=== PATIENT | male | born 1950 | race Caucasian/White ===

== ENCOUNTER 2023-02-21 11:48 | Emergency (ER) | payer OTHER ==
[~2023-02-21] VITALS: Ht 177.8 cm; Wt 113.4 kg
[~2023-02-21 11:48] MED LIST: ACET500; ACYC800 PO; ALBU90OI6 INH; ASCO250CH; ASPI81CH; BUPR150ER PO; DOCSEN PO; FINA5 PO; FISH1000; HYDR1TAB94 PO; IBUP600 PO; OXYACE5T PO; PANT40; PIOG15 PO; Pyridium100 MG PO; SIMV10 PO; SULTRIDS PO; TYLENOL PM EX-1 EAC1
[2023-02-21 11:53] VITALS: BP 149/76
[2023-02-21] MEDS ORDERED: DOC250 PO (13:48)
[2023-02-21] MEDS ORDERED: HYDR1TAB94 PO (13:48)
[2023-02-21] MEDS ORDERED: LIDO700A20 TOP (13:48)
== END 2023-02-21 14:22 | disposition home or self-care (01) ==
LOC: ER 11:48
DX: S30.0XXA Contusion of lower back and pelvis, initial encounter (principal); F17.200 Nicotine dependence, unspecified, uncomplicated; Z79.84 Long term (current) use of oral hypoglycemic drugs; Z79.82 Long term (current) use of aspirin; Z79.899 Other long term (current) drug therapy; Z88.1 Allergy status to other antibiotic agents; Z88.5 Allergy status to narcotic agent; Z91.048 Other nonmedicinal substance allergy status; W01.0XXA Fall on same level from slipping, tripping and stumbling without subsequent striking against object, initial encounter
CPT/HCPCS: 72100; 99283-25

== ENCOUNTER 2023-04-05 15:34 | Emergency (ER) | payer OTHER ==
[~2023-04-05] VITALS: Ht 177.8 cm; Wt 122.5 kg
[~2023-04-05 15:34] MED LIST changes: +DOC250 PO; +LIDO700A20 TOP
[2023-04-05 16:11] VITALS: BP 138/68
[2023-04-05] MEDS ORDERED: Cyclobenzaprine HCl 10 MG Tab PO ONE (19:35)
[2023-04-05] MEDS ORDERED: Lidocaine 4% 1 Patch TOP ONE (19:35)
[2023-04-05] MEDS ORDERED: OxyCODONE 5 mg/Acetamin 325 mg TABLET PO ONE (19:35)
[2023-04-05] MEDS ORDERED: Acetaminophen 325 MG TABLET PO ONE (19:35)
[2023-04-05 20:04] LABS: BASOPHILS ABSOLUTE AUTO 0.05 K/mm3 (0.00-0.23); BASOPHILS PERCENT AUTO 1 % (0-2); EOSINOPHILS ABSOLUTE AUTO 0.33 K/mm3 (0.00-0.68); EOSINOPHILS PERCENT AUTO 5 % (0-6); Hematocrit 48.2 % (37.0-53.0); Hemoglobin 15.1 g/dL (13.5-17.5); IMMATURE GRAN ABSOLUTE AUTO 0.02 K/mm3 (0.00-0.10); IMMATURE GRAN PERCENT AUTO 0 % (0-1); LYMPHOCYTES ABSOLUTE AUTO 1.11 K/mm3 (0.84-5.20); LYMPHOCYTES PERCENT AUTO 18 % (21-46); MONOCYTES ABSOLUTE AUTO 0.71 K/mm3 (0.16-1.47); MONOCYTES PERCENT AUTO 12 % (4-13); Mean Corpuscular HGB 30.2 pg (26.0-34.0); Mean Corpuscular HGB Conc 31.3 g/dL (31.5-36.5); Mean Corpuscular Volume 96 fL (80-100); Mean Platelet Volume 10.2 fL (9.1-12.4); NEUTROPHILS ABSOLUTE AUTO 3.92 K/mm3 (1.96-9.15); NEUTROPHILS PERCENT AUTO 64 % (41-73); Platelet Count 209 K/mm3 (150-400); RDW Coefficient Variation 14.6 % (11.7-14.2); RDW Standard Deviation 51.8 fL (35.1-46.3); White Blood Cell Count 6.14 K/mm3 (4.00-11.30)
[2023-04-05 20:29] LABS: Albumin, Blood 3.9 g/dL (3.4-5.0); Bilirubin, Total 0.4 mg/dL (0.1-1.0); Bun/Creatinine Ratio 27.1 (12.0-20.0); Calcium, Blood 9.2 mg/dL (8.5-10.1); Creatinine, Blood 1.07 mg/dL (0.60-1.20); Globulin, Blood 3.9 g/dL (2.2-4.0); Potassium, Blood 4.8 mmol/L (3.5-5.5); Total Protein, Blood 7.8 g/dL (6.4-8.2)
[2023-04-05] MEDS ORDERED: Percocet 5-3251 EACH PO (20:57)
[2023-04-05] MEDS ORDERED: LIDO700A20 TOP (20:57)
[2023-04-05] MEDS ORDERED: CYCL10 PO (20:57)
== END 2023-04-05 20:51 | disposition home or self-care (01) ==
LOC: ER 15:34
PROVIDERS: Student in an Organized Health Care Education/Training Program
DX: M54.42 Lumbago with sciatica, left side (principal); R60.0 Localized edema; Z90.5 Acquired absence of kidney; Z88.1 Allergy status to other antibiotic agents; Z88.5 Allergy status to narcotic agent; Z79.82 Long term (current) use of aspirin; Z79.84 Long term (current) use of oral hypoglycemic drugs; Z79.899 Other long term (current) drug therapy
CPT/HCPCS: 80053; 85025; 99283; A9270

== ENCOUNTER → 2024-06-23 | Outpatient (CLI) | payer OTHER ==
[~2024-06-23] MED LIST changes: +CYCL10 PO; +Percocet 5-3251 EACH PO
[2024-06-24 12:35] LABS: Stool Occult Bld Immuno 1 Negative (NEGATIVE)
== END | disposition home or self-care (01) ==
LOC: LAB SHORT 11:36 → LAB 11:36
PROVIDERS: Family Medicine
DX: Z12.11 Encounter for screening for malignant neoplasm of colon (principal)
CPT/HCPCS: G0328

== ENCOUNTER → 2024-07-10 | Outpatient (CLI) | payer OTHER | LOC: LAB SHORT 11:22 → LAB 11:22 | DX: N39.0 Urinary tract infection, site not specified (principal) | CPT/HCPCS: 87077; 87086; 87186 ==